=== PATIENT | female | born 1990 | race Caucasian/White ===

== ENCOUNTER 2018-05-18 20:59 | Emergency (ER) | payer OTHER ==
[~2018-05-18] VITALS: Ht 165.1 cm; Wt 106.5 kg
[2018-05-18 22:11] VITALS: BP 119/78
== END 2018-05-18 22:23 | disposition home or self-care (01) ==
LOC: ED 21:52
DX: H92.03 Otalgia, bilateral (principal)
CPT/HCPCS: 99283

== ENCOUNTER 2019-06-15 06:33 | Emergency (ER) | payer SELFPAY ==
[2019-06-15 06:40] VITALS: BP 122/85
[2019-06-15] MEDS ORDERED: IBUPROFEN 600 MG TABLET PO ONE (07:00)
[2019-06-15] MEDS ORDERED: IBUPROFEN 600 MG TABLET ONE (07:01)
== END 2019-06-15 07:08 | disposition home or self-care (01) ==
LOC: ED 06:40
DX: K02.9 Dental caries, unspecified (principal); F17.200 Nicotine dependence, unspecified, uncomplicated; Z90.49 Acquired absence of other specified parts of digestive tract
CPT/HCPCS: 99283

== ENCOUNTER 2021-07-18 03:49 | Emergency (ER) | payer SELFPAY ==
[~2021-07-18] VITALS: Ht 165.1 cm; Wt 110.0 kg
--- NOTE | 2021-07-18 04:58 | NUR ---
pt c/o of left side upper lip pain and laceration since 2300 last night. pt states her and her friend were horse playinmg and she got hit in the lip. no bleeding noted . attached to monitors, vss. rader. wctm
[2021-07-18] MEDS ORDERED: LIDOCAINE-MPF 1%, 5ML ONE (05:36)
[2021-07-18] MEDS ORDERED: LIDOCAINE-MPF 1%, 5ML INFIL ONE (06:00)
--- NOTE | 2021-07-18 06:00 | NUR ---
Patient is SLEEPING comfortably in bed. EYES CLOSED. Bed in lowest, rails engaged, call light on lap. Vital Signs within normal limits. WCTM. A&OX4, BREATHING EVEN AND UNLABORED. NO ACUTE CHANGED NOTED.
--- NOTE | 2021-07-18 06:58 | NUR ---
GAVE REPORT TO NELLY CAMP. TRANSFER OF CARE
--- NOTE | 2021-07-18 07:05 | NUR ---
RECEIVED BEDSIDE REPORT FROM ARIAN CAMP. CARE ASSUMED. PT REQUESTING TO GO HOME "HOW LONG IS THIS GOING TO TAKE? I SPENT 5 HOURS AT [facility]. BEEN HERE FOREVER. WHEN ARE THEY GOING TO FIX MY LIP? IT HURTS." RATES PAIN 9/10 IN FACE/LIP LAC. NO ACTIVE BLEEDING NOTED. SWELLING PRESENT AT LAC. NEURO AND CMS INTACT. AWAITING LAC REPAIR. DISCUSSED CONCERNS AND PAIN WITH DR. RAMIREZ, AWARE. NO NEW ORDERS RECEIVED AT THIS TIME. CALL LIGHT IN REACH. FALL PRECUATIONS IN PLACE. SIGNIFICANT OTHER AT BEDSIDE. VSS.A&OX4.
--- NOTE | 2021-07-18 07:16 | NUR ---
BREAD JOCKEY AT BEDSIDE TO CLEAN/IRRIGATE LAC PER DR. RAMIREZ ORDERS/REQUEST
--- NOTE | 2021-07-18 07:34 | NUR ---
PROVIDER AT BEDSIDE FOR LAC REPAIR
[2021-07-18] MEDS ORDERED: BACITRACIN ZINC OINT 500U/GM, 0.9 GM ONE (07:40)
--- NOTE | 2021-07-18 07:41 | NUR ---
LANE CORRALES AT BEDSIDE, SUTURES PLACED. BACITRACIN DRESSSING APPLIED PER LANE CORRALES REQUEST. NO ACTIVE BLEEDING. AWAITING CHART AND DISCHARGE PAPERS.
[2021-07-18 08:00] VITALS: BP 114/79
--- NOTE | 2021-07-18 08:00 | NUR ---
CONTINUE AWAITING CHART AND DC PAPERS FROM ERP. PT RESTING COMFORTABLY. NAD NOTED. VSS. FAMILY AT BEDSIDE. PT REQUESTING TO LEAVE. ERP AWARE.
--- NOTE | 2021-07-18 08:10 | NUR ---
PT DRESSED AND AMBULATING IN ROOM WITH STEADY GAIT. FAMILY AT BEDSIDE. AWAITING DC PAPERS FROM ERP. PT ANXIOUS TO LEAVE, AWARE.
--- NOTE | 2021-07-18 08:20 | NUR ---
PER [employer]ER[employer]O LOCKE, IN TO DISCHARGE PT AND PT NOT IN ROOM, ELOPED. DISCUSSED WITH DR. RAMIREZ AND LANE CORRALES AWARE, NO NEW ORDERS RECEIVED.
== END 2021-07-18 08:21 | disposition left against medical advice (07) ==
LOC: ED 05:17
DX: S01.511A Laceration without foreign body of lip, initial encounter (principal); Z90.49 Acquired absence of other specified parts of digestive tract; Z87.891 Personal history of nicotine dependence; X58.XXXA Exposure to other specified factors, initial encounter; Y93.89 Activity, other specified; Y92.89 Other specified places as the place of occurrence of the external cause; Y99.8 Other external cause status
CPT/HCPCS: 12052; 99284